=== PATIENT | female | born 1955 | race Caucasian/White ===

== ENCOUNTER 2016-08-17 08:58 | Emergency (ER) | payer BC ==
[2016-08-17 08:56] LABS: BASOPHILS 0.3 %; BASOPHILS ABSOLUTE 0.03 10/3/uL (0.0-0.16); EOSINOPHILS 0.5 %; EOSINOPHILS ABSOLUTE 0.05 10/3/uL (0.0-0.53); HEMATOCRIT 42.1 % (36.0-48.0); HEMOGLOBIN 13.7 g/dL (12.0-16.0); IMMATURE GRANULOCYTES 0.3 %; IMMATURE GRANULOCYTES ABSOLUTE 0.03 10/3/uL (0.0-0.11); LYMPHOCYTES 31.3 %; LYMPHOCYTES ABSOLUTE 2.85 10/3/uL (0.67-4.30); MANUAL DIFF NO %; MEAN CORPUS HGB CONC 32.5 g/dL (32.0-36.0); MEAN CORPUSCULAR HEMOGLOB 26.7 pg (26.0-34.0); MEAN CORPUSCULAR VOLUME 81.9 fL (80-100); MEAN PLATELET VOLUME 10.8 fL (9.2-13.0); MONOCYTES 7.3 %; MONOCYTES ABSOLUTE 0.66 10/3/uL (0.21-1.20); NEUTROPHILS 60.3 %; NEUTROPHILS ABSOLUTE 5.48 10/3/uL (2.02-8.40); PLATELET COUNT 262 10/3/uL (150-400); RBC DISTRIBUTION WIDTH 15.9 % (12.0-16.0); RED CELL COUNT 5.14 10/6/uL (4.0-5.6); WHITE BLOOD CELLS 9.1 10/3/uL (4.5-10.5)
[~2016-08-17 08:58] MED LIST: ASAB PO; AUG875 PO; BETAPACE80 PO; CIP2 PO; CLEOCIN300 MG PO; DIL4TAB PO; DIOVAN HC1 PO; DURICEF PO; ELIDEL TOP; ELIQUIS 5 MG TAB5 MG PO; ESTRACE0.5 MG PO; ESTRACE1 MG PO; FISH OIL300 MG PO; FISH-EPA1000 MG PO; FLECAINIDE150 MG PO; GYNODIOL0.5 MG PO; HALF81 PO; HYDROCHLOROT25 MG PO; HYDROCORT12 TOP; IBU-200200 MG PO; K500 PO; LEVAQ250 PO; LIPITOR40 PO; LOP50 PO; LOTE20 PO; LOTE40 PO; NORV5 PO; PCET PO; PLAVIX PO; PR25 PO; PRILO PO; PRILOSEC OTC20 MG PO; ROBITUSS11 PO; SANTYL250 MG/GM TOP; TAMBOCOR150 MG PO; TRIAMCINOLONE C80 GM TOP; ULTRAM50 PO; VESICARE5 PO; VICODINTAB PO; VOLT75 PO; X25 PO
[2016-08-17 09:01] LABS: INTERNATIONAL NORMAL RATI 1.1 UNITS (-); PARTIAL THROMBO TIME 29.2 SEC (22.5-37.2); PROTIME (NOT ORD) 13.7 SEC (12.0-14.5)
[2016-08-17 09:11] LABS: BUN (BLOOD UREA NITROGEN) 24 MG/DL (6-23); CALCIUM, SERUM 8.5 MG/DL (8.5-10.4); CHEST PAIN PROFILE TAT 0 Hrs 21 Mins; CHLORIDE, SERUM 102 MMOL/L (96-112); CO2 (CARBON DIOXIDE) 28 MMOL/L (24-34); CREATININE 0.72 MG/DL (0.55-1.02); GFR AFRICAN AMERICAN 106 ML/MIN (>=60); GFR NON AFRICAN AMERICAN 92 ML/MIN (>=60); POTASSIUM, SERUM 3.9 MMOL/L (3.5-5.3); SODIUM, SERUM 139 MMOL/L (135-148); TROPONIN I <0.02 NG/ML (<0.05)
[2016-08-17 09:13] LABS: GLUCOSE, SERUM 184 MG/DL (60-99)
[2016-08-17] MEDS ORDERED: ELIQUIS 5 MG TAB5 MG PO (10:06)
[2016-08-17] MEDS ORDERED: TRIAMCINOLONE C80 GM TOP (10:06)
[2016-08-17] MEDS ORDERED: ASAB PO (10:07)
[2016-08-17] MEDS ORDERED: NORV5 PO (10:07)
[2016-08-17] MEDS ORDERED: VESICARE5 PO ×2 (10:08→10:13)
[2016-08-17] MEDS ORDERED: BETAPACE80 PO (10:08)
[2016-08-17] MEDS ORDERED: X25 PO (10:08)
[2016-08-17] MEDS ORDERED: DIOVAN HC1 PO (10:09)
[2016-08-17] MEDS ORDERED: PREV15 PO (10:09)
[2016-08-17] MEDS ORDERED: ULTRAM50 PO (10:09)
[2016-08-17] MEDS ORDERED: TOPICORT 0.25% TOP (10:11)
[2016-08-17] MEDS ORDERED: Z-PAK PO (10:12)
[2016-08-17] MEDS ORDERED: METHOC750B PO (10:13)
[2016-08-17] MEDS ORDERED: MACROBID PO (10:14)
[2016-08-17] MEDS ORDERED: ACET500CAP PO (10:15)
[2016-08-17] MEDS ORDERED: NITROSTAT0.4 MG PO (10:16)
[2016-08-17] MEDS ORDERED: ROBITUSSIN CF PO (10:17)
[2016-12-20] MEDS ORDERED: PREV15 PO (10:18)
[2016-12-20] MEDS ORDERED: SINGULAIR1 PO (10:23)
== END 2016-08-17 13:53 | disposition home or self-care (01) ==
LOC: ER 08:58
PROVIDERS: Nurse Practitioner
DX: R07.9 Chest pain, unspecified (principal); I48.91 Unspecified atrial fibrillation; E11.9 Type 2 diabetes mellitus without complications; F17.200 Nicotine dependence, unspecified, uncomplicated; Z87.442 Personal history of urinary calculi; Z95.5 Presence of coronary angioplasty implant and graft; Z90.710 Acquired absence of both cervix and uterus; Z88.2 Allergy status to sulfonamides; Z88.5 Allergy status to narcotic agent; Z91.040 Latex allergy status; Z91.030 Bee allergy status; Z91.09 Other allergy status, other than to drugs and biological substances; Z79.82 Long term (current) use of aspirin; Z79.899 Other long term (current) drug therapy
CPT/HCPCS: 71010; 80048; 83735; 83880; 84484; 85025; 85610; 85730; 93005; 96374; 99285; A9270-GY; J1940